=== PATIENT | female | born 1980 | race Caucasian/White ===

== ENCOUNTER 2025-01-13 01:57 | Emergency (ER) | payer MEDICAID ==
[~2025-01-13] VITALS: Ht 154.9 cm; Wt 95.0 kg
[2025-01-13] MEDS ORDERED: diazePAM 10 MG/2 ML SYR IM ONE (03:00)
[2025-01-13] MEDS ORDERED: KETOROLAC TROMETHAMINE 30 MG/ML VIAL IM ONE (03:00)
[2025-01-13] MEDS ORDERED: ELIQUIS5 MG PO (04:47)
[2025-01-13] MEDS ORDERED: HYDROCODON-ACE1 EA10 PO (04:48)
[2025-01-13] MEDS ORDERED: HYDROCODONE BIT/ACETAMINOPHEN 5/325 MG 1 TAB HOME.PACK PO ONE (05:00)
[2025-01-13] MEDS ORDERED: APIXABAN 5 MG TAB PO ONE (05:00)
[2025-01-13 05:04] VITALS: BP 99/65
== END 2025-01-13 05:06 | disposition home or self-care (01) ==
LOC: ED 01:57
DX: I82.422 Acute embolism and thrombosis of left iliac vein (principal); I82.432 Acute embolism and thrombosis of left popliteal vein; Z86.718 Personal history of other venous thrombosis and embolism; J45.909 Unspecified asthma, uncomplicated
CPT/HCPCS: 36415; 85379; 93971; 96372; 99284-25; A9270; J1885; J3360